=== PATIENT | female | born 1960 | race Caucasian/White ===

== ENCOUNTER 2023-11-25 06:59 | Emergency (ER) | payer BC ==
[~2023-11-25] VITALS: Ht 167.6 cm; Wt 93.3 kg
[~2023-11-25 06:59] MED LIST: ACETAMINOPHEN500 MG PO; ADVIL200 MG PO; BENADRYL ALLERG25 MG PO; CIPROFLOXACIN500 MG PO; HYDROMORPHONE HC2 MG PO; IBUPROFEN600 MG PO; METRONIDAZOLE250 MG PO; MUCINEX1200 MG PO; OMEPRAZOLE20 MG PO; OSTERA TABLET1 EACH PO; OXYCODON-ACETA1 EAC2 PO; TURMERIC500 M2 PO; ZYRTEC10 MG PO
[2023-11-25] MEDS ORDERED: ondansetron HCL 4 MG/2 ML VIAL IV ONE (07:15)
[2023-11-25 07:17] LABS: BASOPHILS 0.5 % (0-2); EOSINOPHILS 1.1 % (0-6); HEMOGLOBIN 15.4 g/dL (12.0-18.0); LYMPHOCYTES 25.3 % (24-44); MCH 27.6 (27-36); MCHC 33.5 g/dl (30-36); MCV 82.5 fl (81-99); MONOCYTES 6.6 % (0-12); NEUTROPHILS 66.5 % (39-80); PLATELET COUNT 304 K/uL (140-440); RBC 5.58 M/ul (4.3-5.7); RDW 14.1 (10.5-15.0)
[2023-11-25] MEDS ORDERED: VITAMIN D3125 MC1 PO ×2 (07:19→07:26)
[2023-11-25] MEDS ORDERED: CARAFATE1 GM PO (07:27)
[2023-11-25] MEDS ORDERED: LANSOPRAZOLE30 MG PO (07:27)
[2023-11-25] MEDS ORDERED: TYLENOL325 M1 PO (07:29)
[2023-11-25] MEDS ORDERED: PANTOPRAZOLE SODIUM 40 MG/10 ML VIAL IV ONE (07:30)
[2023-11-25] MEDS ORDERED: SODIUM CHLORIDE 0.9% 1,000 ML IV PRN (07:30)
[2023-11-25 07:33] LABS: ALBUMIN 3.8 g/dL (3.4-5.0); ALBUMIN/GLOBULIN RATIO 1.15 (1.1-2.4); ANION GAP 15.1 (7-21); BILIRUBIN, TOTAL 2.3 ng/dL (0.2-1.0); BUN/CREATININE RATIO 13.79 (6.0-28.6); CALCIUM 9.2 mg/dL (8.5-10.1); CREATININE, SERUM 0.87 mg/dL (0.55-1.02); POTASSIUM 4.1 mmol/L (3.5-5.1); PROTEIN, TOTAL 7.1 g/dL (6.4-8.2)
[2023-11-25 09:04] LABS: BILIRUBIN, URINE NEGATIVE (negative); BLOOD/HGB, URINE NEGATIVE (Negative); KETONE, URINE NEGATIVE (Negative); LEUK ESTERASE, URINE NEGATIVE (negative); NITRITE, URINE NEGATIVE (negative); PH, URINE 7.5 (5-7)
[2023-11-25] MEDS ORDERED: ONDANSETRON ODT4 MG PO (09:23)
[2023-11-25 10:15] VITALS: BP 127/80
== END 2023-11-25 10:15 | disposition home or self-care (01) ==
LOC: ED 06:59
PROVIDERS: Emergency Medicine
DX: R11.10 Vomiting, unspecified (principal); Z91.018 Allergy to other foods; Z79.899 Other long term (current) drug therapy
CPT/HCPCS: 36415; 80053; 81003; 83690; 85025; 96374; 96375; 99284-25; C9113; J2405; J7030